=== PATIENT | male | born 1950 ===

== ENCOUNTER 2019-03-18 11:42 | Emergency (ER) | payer MEDICARE, OTHER ==
[2019-03-18 11:53] VITALS: BP 140/82
[2019-03-18] MEDS ORDERED: WARF10TA28 PO (12:12)
[2019-03-18] MEDS ORDERED: HYDR-2966 PO (12:12)
[2019-03-18] MEDS ORDERED: SIMV-54 PO (12:12)
[2019-03-18] MEDS ORDERED: BUPR200T18 PO (12:12)
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
[2019-03-18] MEDS ORDERED: TAMS0.4C25 PO (12:25)
[2019-03-18] MEDS ORDERED: ACET-1966 PO (12:25)
[2019-03-18] MEDS ORDERED: RANI-54 PO (12:25)
[2019-03-18] MEDS ORDERED: LISI-374 PO (12:25)
[2019-03-18] MEDS ORDERED: ACET125T9 PO (12:25)
[2019-03-18] MEDS ORDERED: TRAZ50TA52 PO (12:25)
[2019-03-18 12:35] LABS: PLATELET COUNT, AUTOMATED 203 K/uL (150-450)
[2019-03-18 12:57] LABS: INR 2.21
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
--- NOTE | 2019-03-18 13:41 | RADIOLOGY IMAGING REPORT ---
[place] [facility] [place] NAME: Jamal Chaudhari : 1950 MR: [id number] V: [id number] EXAM DATE: ORDERING PHYSICIAN: HANNA MALDONADO TECHNOLOGIST: [place] [facility] [place] Jamal Chaudhari : 1950 Visit/Account:[id number] Date of Sevice: 03/18/2019 ADDENDUM #1 ADDENDUM: Results were called to HANNA MALDONADO on 03/18/2019 1:39 PM. Report Dictated By: Zeb Rondon MD at 03/18/2019 1:37 PM Report E-Signed By: Zeb Rondon MD at 03/18/2019 1:39 PM ORIGINAL REPORT EXAMINATION: CT pelvis without IV contrast HISTORY: Injury, tender to palpation TECHNIQUE: CT scan was performed through the pelvis without intravenous contrast. Sagittal and cor onal reformatted images generated. One of the following dose optimization techniques was utilized in the performance of this exam: autom ated exposure control; adjustment of the mA and/or kV according to patient size; or use of iterative reconstruction technique. Specific details can be referenced in the facility's radiology CT exam ope rational policy. COMPARISON: Hip radiographs same day FINDINGS: Osseous structures: Acute slightly displaced right greater trochanter fracture. No additional fractu re identified. L4-5 and L5-S1 moderate to severe facet arthropathy noted. Pelvic musculature/soft tissues: Likely benign lipoma within the right gluteus musculature contains a few dystrophic calcifications. Fat-containing umbilical hernia noted. Lymph nodes: Negative. Pelvic free fluid: None. Genitourinary and visualized bowel structures: Dense layering debris within the bladder versus dense soft tissue thickening of the posterior bladder wall, axial image 70. Mild prostate gland enlargemen t. Sigmoid colonic diverticulosis. IMPRESSION: 1. Acute slightly displaced right proximal femoral greater trochanter fracture. 2. No additional fracture identified. 3. Dense layering debris within the posterior bladder versus pathologic dense posterior bladder wall thickening. Malignant bladder wall thickening cannot be excluded. Correlate with urinalysis. Cyst oscopy may be warranted to exclude a bladder wall mass. 4. Small right gluteus muscle lipoma contains a few dystrophic calcifications. This is favored to r epresent a benign atypical lipoma with internal calcifications and less likely a malignant lipoma. N oncontrast pelvic CT follow-up may be warranted in 3-4 months to ensure stability. Report Dictated By: Zeb Rondon MD at 03/18/2019 1:26 PM Report E-Signed By: Zeb Rondon MD at 03/18/2019 1:34 PM WSN:[email or web address]
[2019-03-18] MEDS ORDERED: APAP/HYDROCODONE 325/5 TAB PO ONE (14:25)
[2019-03-18] MEDS ORDERED: HYDR-385 PO (14:29)
== END 2019-03-18 14:37 | disposition home or self-care (01) ==
LOC: ER 11:46
DX: S72.114A Nondisplaced fracture of greater trochanter of right femur, initial encounter for closed fracture (principal)
CPT/HCPCS: 72192; 73502; 85025; 85610; 85730; 99284; A9270; 82040; 82247; 82310; 82374; 82435; 82565; 82947; 84075; 84132; 84155; 84295; 84450; 84460; 84520